=== PATIENT | female | born 1965 | race American Indian/Alaskan Native ===

== ENCOUNTER 2017-07-19 08:58 | Outpatient (CLI) | payer OTHER ==
--- NOTE | 2017-07-19 11:53 | Mammography Report ---
LEFT DIGITAL DIAGNOSTIC MAMMOGRAM: 07/19/17 08:58:00 CLINICAL: For clip placement immediately status post MRI guided needle biopsy. She has a known cancer in the same breast. COMPARISON:04/23/17 FINDINGS: A biopsy clip is now identified in the upper outer quadrant and correlates with today's MRI biopsy of a second lesion. The clips are 7.7 cm apart. IMPRESSION: Concordant clip placement status post MRI biopsy. BI-RADS CATEGORY: 6--Known Cancer
--- NOTE | 2017-07-19 12:52 | Magnetic Resonance Report ---
MRI GUIDED VACUUM ASSISTED CORE BIOPSY LEFT BREAST: 07/19/17 08:58:00 CLINICAL: Known left breast cancer with multifocal tumor on recent MRI. COMPARISON: 05/29/17 FINDINGS: Consent for the procedure was obtained. A Vibrant dynamic postcontrast series was performed on a 1.5 Elaina magnet using an 8 channel Sentinelle dedicated breast coil. 14 cc of Multihance was injected intravenously without incident via a right antecubital vein 22-gauge INT. A lesion in the upper breast was localized and targeted from a lateral approach using Noquo Sentinelle biopsy software. The skin was anesthetized with 1% lidocaine and a small dermatotomy was made. 2% lidocaine was administered for deeper anesthesia. 9-G biopsy was performed with an Chipolo vacuum assisted device. Imaging demonstrated satisfactory positioning of the probe and samples were obtained. A clip was placed after confirmation of adequate sampling. The probe was removed and hemostasis was achieved with pressure to the site. A sterile dressing was applied. The patient tolerated the procedure well and there were no apparent complications. A two view mammogram demonstrated concordant clip placement. The patient left the department in good condition and was given instructions for wound care and follow-up. IMPRESSION: Uncomplicated MRI biopsy with clip placement left breast.
== END 2017-07-19 08:59 | disposition home or self-care (01) ==
LOC: SPVIMAG 08:58
PROVIDERS: ATTEND Surgery
DX: C50.912 Malignant neoplasm of unspecified site of left female breast (principal); D05.12 Intraductal carcinoma in situ of left breast; Z17.0 Estrogen receptor positive status [ER+]
CPT/HCPCS: 19085; 88305; 88361; 88368; A9577; G0206

== ENCOUNTER 2017-08-14 10:38 | Outpatient (CLI) | payer OTHER ==
--- NOTE | 2017-08-14 16:11 | Nuclear Medicine Report ---
Whole body bone scan: Breast cancer. Following injection of radionuclide imaging of the body was obtained approximately 3 hours. There is a relatively good bone to background ratio with normal activity in the urinary tract. Standard whole body images were performed in addition to multiple selective chest, abdomen, and head and neck. Intense generalized activity is identified in the mandible. The remainder of the activity distribution throughout the bones and soft tissue is unremarkable. Impressions: Unexplained mandibular activity. Correlate clinically. No metastatic disease suspected.
--- NOTE | 2017-08-15 11:28 | Cat Scan Report ---
CT CHEST WITH CONTRAST: HISTORY: Malignant neoplasm of breast. COMPARISON: none. TECHNIQUE: Helical CT in 1.25mm intervals following IV contrast. Sagittal and coronal reformatted images. FINDINGS: The breast tissue is heterogeneously dense bilaterally. There is suggestion of a 1.8 cm slightly hyperdense mass in the lateral left breast on image 50. Surgical clip is noted in a normal appearing left axillary lymph node on image 35. Thyroid gland: Normal. Tracheobronchial tree: Normal. Esophagus: Normal. Heart: Normal. Pericardium: Normal. Mediastinum: Normal. Lung [place]: Normal. Pleural Spaces: Normal. Musculoskeletal: Normal. IMPRESSION: Suspected left breast mass as described above. Otherwise, unremarkable exam. No evidence for metastatic disease.
--- NOTE | 2017-08-15 11:32 | Cat Scan Report ---
CT ABDOMEN PELVIS WITH CONTRAST: HISTORY: Malignant neoplasm of breast. COMPARISON: none. TECHNIQUE: Helical CT in 1.25mm intervals following IV contrast. Sagittal and coronal reconstructions. FINDINGS: Liver: Normal. Biliary system: Normal. Pancreas: Normal. Spleen: Normal. Kidneys/ureters/bladder: A solitary 3 mm calyceal stone is identified at the inferior pole of left kidney. Few scattered tiny cortical cysts are noted in the superior left kidney. No mass or hydronephrosis. The ureters and bladder are unremarkable. Adrenal glands: Normal. Aorta: Normal. Intestines: Normal. Appendix: Not confidently identified, correlate with surgical history. Pelvic viscera: The uterus is markedly enlarged and lobular consistent with multiple fibroids. The adnexa are unremarkable. Ascites: None. Adenopathy: None. Musculoskeletal: No suspicious bony lesions are identified. IMPRESSION: No evidence for metastatic disease to the abdomen or pelvis. Uterine fibroid disease. 3 mm left renal stone and a few millimetric simple left renal cysts.
== END 2017-08-14 10:39 | disposition home or self-care (01) ==
LOC: NM 10:38
PROVIDERS: ATTEND Internal Medicine Hematology & Oncology
DX: C50.412 Malignant neoplasm of upper-outer quadrant of left female breast (principal); N20.0 Calculus of kidney; N28.1 Cyst of kidney, acquired; D25.9 Leiomyoma of uterus, unspecified
CPT/HCPCS: 71260; 74177; 78306; A9503; Q9967

== ENCOUNTER 2019-10-15 18:24 | Emergency (ER) | payer MEDICAID, OTHER ==
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
[2019-10-15 18:34] VITALS: BP 157/78
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
[2019-10-15] MEDS ORDERED: IBUPROFEN 800 MG TAB PO ONE (20:39)
[2019-10-15] MEDS ORDERED: CYCLOBENZAPRINE 10 MG TAB PO ONE (20:39)
== END 2019-10-15 21:25 | disposition home or self-care (01) ==
LOC: ED 18:24
DX: S16.1XXA Strain of muscle, fascia and tendon at neck level, initial encounter (principal); M25.511 Pain in right shoulder; M25.522 Pain in left elbow; V43.62XA Car passenger injured in collision with other type car in traffic accident, initial encounter; Y93.89 Activity, other specified; Y92.410 Unspecified street and highway as the place of occurrence of the external cause; Y99.8 Other external cause status
CPT/HCPCS: 72040; 99283